=== PATIENT | female | born 1980 | race American Indian/Alaskan Native ===

== ENCOUNTER 2018-06-10 15:58 | Inpatient (IN) | payer MEDICAID, OTHER ==
[2018-06-10] MEDS ORDERED: Multivitamin (MVI) 10 ML, Thiamine 100 MG, Folic Acid 1 MG in Sodium Chloride 0.9% 1,00... IV ONE (17:09)
[2018-06-10 17:32] LABS: BASO % 0.6 % (0.0-2.0); EOS % 0.1 % (0.0-4.0); HEMOGLOBIN 10.1 g/dL (11.0-16.0); LYMPH # 0.7 K/uL (1.0-4.3); LYMPH % 9.3 % (20.0-40.0); MEAN CORPUSCULAR HEMOGLOBIN 24.2 pg (27.0-31.0); MEAN PLATELET VOLUME 10.1 fL (7.2-11.7); MONO # 0.5 K/uL (0.0-0.8); MONO % 6.1 % (0.0-10.0); NEUT # 6.5 K/uL (1.8-7.0); NEUT % 83.9 % (50.0-75.0); PLATELET COUNT 253 K/uL (130-400); RBC 4.17 Mil/uL (3.80-5.20); RED CELL DISTRIBUTION WIDTH 21.3 % (11.5-14.5)
[2018-06-10 17:33] LABS: MEAN CELL VOLUME 78.2 fL (81.0-99.0); WHITE BLOOD COUNT 7.8 K/uL (4.8-10.8)
[2018-06-10 17:45] LABS: ALB/GLOB RATIO 1.3 (1.0-2.1); ALBUMIN 4.7 g/dL (3.5-5.0); ALT/SGPT 45 U/L (9-52); AST/SGOT 90 U/L (14-36); BLOOD UREA NITROGEN 5 mg/dL (7-17); CALCIUM 8.7 mg/dl (8.6-10.4); GFR NON-AFRICAN AMERICAN > 60; LIPASE 114 U/L (23-300)
--- NOTE | 2018-06-10 17:47 | C.PDOC ---
History Of Present Illness 38 yr old female w/ hx of htn, hld, etoh abuse p/w syncopal epsiode. 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 She notes that she has been dizzy at work, and that the last time she drank was yesterday. She notes drinking 6+ cans of beer a day. She denies biting her tongue or enuresis and denies any hx of etoh withdrawal seizures. No fever, chills or night sweats. Time Seen by Provider: 06/10/18 16:58 Chief Complaint (Nursing): GI Problem Past Medical History Vital Signs: Last Vital Signs Temp 98.2 F 06/10/18 16:15 Pulse 85 06/10/18 16:41 Resp 16 06/10/18 16:41 BP 199/99 H 06/10/18 16:41 Pulse Ox 100 06/10/18 16:41 - Medical History PMH: Cardia Arrhythmia, HTN Denies: Chronic Kidney Disease Family History: States: Unknown Family Hx - Social History Hx Tobacco Use: No Hx Alcohol Use: Yes Hx Substance Use: No - Immunization History Hx Tetanus Toxoid Vaccination: Yes (2014) Hx Influenza Vaccination: Yes Hx Pneumococcal Vaccination: No Review Of Systems Constitutional: Positive for: Chills. Negative for: Fever Eyes: Negative for: Pain, Vision Change, Eyelid Inflammation, Redness ENT: Negative for: Ear Pain, Ear Discharge, Nose Congestion, Mouth Pain Cardiovascular: Negative for: Chest Pain, Palpitations, Edema Respiratory: Negative for: Cough, Shortness of Breath, SOB with Excertion, Pleuritic Pain Gastrointestinal: Negative for: Nausea, Vomiting, Abdominal Pain, Diarrhea, Constipation Genitourinary: Negative for: Dysuria Musculoskeletal: Negative for: Neck Pain, Shoulder Pain, Back Pain, Foot Pain Psych: Positive for: Anxiety Physical Exam - Physical Exam Appears: Well, Non-toxic Skin: Normal Color, Warm Head: Atraumatic, Normacephalic Eye(s): bilateral: Normal Inspection, PERRL, EOMI Ear(s): Bilateral: Normal Nose: Normal Tongue: Normal Appearing Lips: Normal Appearing Teeth: Normal Dentition Throat: Normal, No Erythema, No Exudate Neck: Normal, Normal ROM, Other (no meningeal signs) Chest: Symmetrical, No Deformity Cardiovascular: Rhythm Regular Respiratory: Normal Breath Sounds, No Rales, No Rhonchi Gastrointestinal/Abdominal: Normal Exam, Soft, No Tenderness Back: Normal Inspection, No CVA Tenderness, No Vertebral Tenderness Extremity: Normal ROM, No Tenderness Extremity: Bilateral: Atraumatic, Normal Color And Temperature, Normal ROM, Pelvis-Stable Pulses: Left Dorsalis Pedis: Normal, Right Dorsalis Pedis: Normal Neurological/Psych: Oriented x3, Normal Speech, Normal Cognition Other Neurological Findings: Other (tongue fasisculations, tremors noted on exams to distal fingertips) Extremity: Right: No Drift, Left: No Drift ED Course And Treatment - Laboratory Results Result Diagrams: 06/10/18 17:28 06/10/18 17:28 O2 Sat by Pulse Oximetry: 100 Medical Decision Making Medical Decision Makin yr old F w/ hx of Etoh abuse p/w syncopal episodes, nausea, tremors. Pt notes symptoms began after she d/c etoh last night. No hx of withdrawal or seizures but has never d/c etoh. Likely etoh withdrawal w/ syncopal episode. No signs of trauma or meningeal signs on exam. No dark or bloody stool. CIWA 15 EK, NSR, no stemi 1757 Given home medications for HTN, with improvement, pt denies any GILL. Ct read per my red is neg for ICH improved shakes and nervousness and fascilations w/ ativan here in ED admitted to Dr. Rehman (PMD is jerad) for etoh withdrawal Pt agreeable to plan Disposition - Disposition Disposition Time: 17:56 Condition: GOOD Forms: [employer] (K[place]akh) - Clinical Impression Clinical Impression: Alcohol withdrawal
--- NOTE | 2018-06-10 18:00 | CT ---
Date of service: 06/10/2018 PROCEDURE: CT HEAD WITHOUT CONTRAST. HISTORY: syncope COMPARISON: Noncontrast head CT performed 09/04/15 TECHNIQUE: Axial computed tomography images were obtained through the head/brain without intravenous contrast. Radiation dose: Total exam DLP = 1109.92 mGy-cm. This CT exam was performed using one or more of the following dose reduction techniques: Automated exposure control, adjustment of the mA and/or kV according to patient size, and/or use of iterative reconstruction technique. FINDINGS: HEMORRHAGE: No intracranial hemorrhage. BRAIN: No mass effect or edema. Intracranial atherosclerosis. Mild scattered white matter hypodensities, which are nonspecific, but often seen with chronic microvascular ischemic disease. Please note that MRI with diffusion imaging is more sensitive in the detection of acute ischemic event. VENTRICLES: No hydrocephalus. CALVARIUM: Unremarkable. PARANASAL SINUSES: Unremarkable as visualized. No significant inflammatory changes. MASTOID AIR CELLS: Unremarkable as visualized. No inflammatory changes. OTHER FINDINGS: None. IMPRESSION: Mild scattered white matter hypodensities, which are nonspecific, but often seen with chronic microvascular ischemic disease. Correlate clinically.
[2018-06-10 18:19] LABS: LYMPHOCYTE 4 % (20-40); MONOCYTE 3 % (0-10); NEUTROPHIL 93 % (50-75); PLATELET ESTIMATE NORMAL (NORMAL); TOTAL CELLS COUNTED 100
[2018-06-10 18:20] LABS: ANISOCYTOSIS SLIGHT; MICROCYTOSIS SLIGHT
[2018-06-10 18:21] LABS: POLYCHROMIC SLIGHT
[2018-06-10 18:22] LABS: HYPOCHROMIC MODERATE
--- NOTE | 2018-06-10 18:22 | CT ---
Date of service: 06/10/2018 CT cervical spine without IV contrast Indication: fall Comparison: None available Technique: Axial computed tomography images were obtained of the cervical spine without the use of intravenous contrast. Coronal and sagittal reformatted images were created and reviewed. This CT exam was performed using 1 or more of the following dose reduction techniques: Automated exposure control, adjustment of the MAA and/or kV according to patient size, and/or use of iterative reconstruction technique. Radiation dose: Total exam DLP = 587.89 mGy-cm. Findings: Straightening of the normal cervical lordosis may be related to muscle spasm or positioning. There is no evidence of acute fracture or subluxation. There is preserved alignment, vertebral body height, intervertebral disc spaces. The prevertebral soft tissues and spinolaminar lines appear intact. The lateral masses are preserved. The dens tip is intact. There is proper alignment of the lateral masses of C1 with the C2 vertebral body. Included portions of the thyroid gland appear unremarkable. Included portions of lung apices appear clear. Mucosal thickening of the ethmoid air cells and maxillary sinuses. Impression: Straightening of the normal cervical lordosis may be related to muscle spasm or positioning. No evidence of acute fracture or subluxation. Mucosal thickening of the included portions ethmoid air cells and maxillary sinuses.
--- NOTE | 2018-06-10 18:35 | RAD ---
HISTORY: syncope COMPARISON: Chest x-ray performed 11/18/14 TECHNIQUE: Chest PA and lateral FINDINGS: LUNGS: No focal consolidation. Please note that chest x-ray has limited sensitivity for the detection of pulmonary masses. PLEURA: No significant pleural effusion identified. No definite pneumothorax . CARDIOVASCULAR: Heart size appears within normal limits. No atherosclerotic calcification present. OSSEOUS STRUCTURES: No acute osseous abnormality identified. VISUALIZED UPPER ABDOMEN: Unremarkable. OTHER FINDINGS: None. IMPRESSION: No focal consolidation.
[2018-06-11] MEDS: Multiple Vitamins Tab PO SCH (09:10)
[2018-06-11] MEDS: Enoxaparin 40 mg Syringe SC SCH (09:10)
[2018-06-11 12:13] LABS: BASO % 0.8 % (0.0-2.0); EOS % 0.2 % (0.0-4.0); HEMOGLOBIN 9.9 g/dL (11.0-16.0); LYMPH # 0.8 K/uL (1.0-4.3); LYMPH % 16.4 % (20.0-40.0); MEAN CORPUSCULAR HEMOGLOBIN 24.8 pg (27.0-31.0); MEAN CORPUSCULAR HGB CONC 31.3 g/dL (33.0-37.0); MEAN PLATELET VOLUME 9.6 fL (7.2-11.7); MONO # 0.3 K/uL (0.0-0.8); MONO % 6.7 % (0.0-10.0); NEUT # 3.9 K/uL (1.8-7.0); NEUT % 75.9 % (50.0-75.0); RBC 3.98 Mil/uL (3.80-5.20); RED CELL DISTRIBUTION WIDTH 21.1 % (11.5-14.5); WHITE BLOOD COUNT 5.1 K/uL (4.8-10.8)
[2018-06-11 12:23] LABS: ALB/GLOB RATIO 1.2 (1.0-2.1); ALBUMIN 4.4 g/dL (3.5-5.0); ALT/SGPT 42 U/L (9-52); AST/SGOT 63 U/L (14-36); BLOOD UREA NITROGEN 8 mg/dL (7-17); CALCIUM 8.9 mg/dl (8.6-10.4); GFR NON-AFRICAN AMERICAN > 60
--- NOTE | 2018-06-11 13:45 | CP.PCM.CON ---
<Poornima Laureano - Last Filed: 06/11/18 14:54> History of Present Illness - History of Present Illness History of Present Illness: Cardiology progress note 38 year old female with past medical history of HTN and ETOH abuse is admitted for lightheadedness and syncope. Cardiology consulted for syncope. 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 Pt denied hitting head, tongue-bitting, incontinence, speech or vision changes. Pt admits to one prior episode of lightheadedness a few months ago which she attributes to dehydration. On admission, CT of head and neck were negative. Currently, pt denies having any lightheadedness, CP, palpitaitons, weakness, numbness or tingling. PMHx: stated above Sx: c/S x1 Fam hx: HTN and DM (multiple family members) Social hx: Admits to socially drinking ETOH, denies illicit drugs or tobacco use, lives with family, working Meds: See MAR Allergies: NKDA PMD: None Review of Systems - Constitutional Constitutional: absent: Chills, Fever - EENT Eyes: absent: Blurred Vision, Change in Vision Nose/Mouth/Throat: absent: Nasal Congestion - Cardiovascular Cardiovascular: Lightheadedness. absent: Chest Pain, Dyspnea, Leg Edema, Pa lpitations, Pedal Edema - Respiratory Respiratory: absent: Cough, Dyspnea, Wheezing - Gastrointestinal Gastrointestinal: absent: Abdominal Pain, Constipation, Diarrhea, Nausea, Vomiting - Musculoskeletal Musculoskeletal: absent: Back Pain, Numbness, Tingling - Neurological Neurological: Syncope. absent: Confusion, Dizziness, Frequent Falls, Headaches, Vertigo, Weakness - Psychiatric Psychiatric: absent: Anxiety, Depression Past Patient History - Past Medical History & Family History Past Medical History?: Yes - Past Social History Smoking Status: Never Smoked - CARDIAC Hx Cardiac Disorders: Yes Hx Cardia Arrhythmia: Yes Hx Hypertension: Yes - PULMONARY Hx Respiratory Disorders: No - NEUROLOGICAL Hx Neurological Disorder: No - HEENT Hx HEENT Problems: No - RENAL Hx Chronic Kidney Disease: No - ENDOCRINE/METABOLIC Hx Endocrine Disorders: No - HEMATOLOGICAL/ONCOLOGICAL Hx Blood Disorders: No - INTEGUMENTARY Hx Dermatological Problems: No - MUSCULOSKELETAL/RHEUMATOLOGICAL Hx Musculoskeletal Disorders: No Hx Falls: Yes - GASTROINTESTINAL Hx Gastrointestinal Disorders: No - GENITOURINARY/GYNECOLOGICAL Hx Genitourinary Disorders: No - PSYCHIATRIC Hx Psychophysiologic Disorder: No Hx Substance Use: No - SURGICAL HISTORY Hx Surgeries: Yes Hx Section: Yes (1999) - ANESTHESIA Hx Anesthesia: Yes Hx Anesthesia Reactions: No Hx Malignant Hyperthermia: No Meds Allergies/Adverse Reactions: Allergies Allergy/AdvReac Type Severity Reaction Status Date / Time No Known Allergies Allergy Verified 06/10/18 16:09 - Medications Medications: Current Medications Aspirin (Aspirin Chewable) 81 mg PO DAILY [facility] Last Admin: 06/11/18 09:10 Dose: 81 mg Carvedilol (Coreg) 25 mg PO BID [facility] Last Admin: 06/11/18 09:10 Dose: 25 mg Enoxaparin Sodium (Lovenox) 40 mg SC DAILY [facility] Last Admin: 06/11/18 09:10 Dose: 40 mg Folic Acid (Folic Acid) 1 mg PO DAILY [facility] Last Admin: 06/11/18 09:10 Dose: 1 mg Lisinopril (Zestril) 40 mg PO BID [facility] Last Admin: 06/11/18 09:28 Dose: 40 mg Lorazepam (Ativan) 2 mg IVP Q6H PRN PRN Reason: alcohol withdrawl Multivitamins (Hexavitamin) 1 tab PO DAILY [facility] Last Admin: 06/11/18 09:10 Dose: 1 tab Thiamine HCl (Vitamin B1 Tab) 100 mg PO BID [facility] Last Admin: 06/11/18 09:10 Dose: 100 mg Physical Exam - Constitutional Appears: Non-toxic, No Acute Distress - Head Exam Head Exam: ATRAUMATIC, NORMOCEPHALIC - Eye Exam Eye Exam: EOMI Pupil Exam: PERRL - ENT Exam ENT Exam: Mucous Membranes Moist - Respiratory Exam Respiratory Exam: Clear to Auscultation Bilateral. absent: Rales, Rhonchi, Wheezes - Cardiovascular Exam Cardiovascular Exam: REGULAR RHYTHM, +S1, +S2, Systolic Murmur. absent: Diastolic murmur, Gallop, Rubs - GI/Abdominal Exam GI & Abdominal Exam: Normal Bowel Sounds, Soft. absent: Firm, Guarding, Tenderness - Extremities Exam Extremities exam: Negative for: pedal edema, tenderness - Neurological Exam Neurological exam: Alert, Oriented x3 - Psychiatric Exam Psychiatric exam: Normal Affect, Normal Mood - Skin Skin Exam: Dry, Intact, Normal Color, Warm Results - Vital Signs Recent Vital Signs: Last Vital Signs Temp 98.7 F 06/11/18 08:00 Pulse 93 H 06/11/18 10:00 Resp 18 06/11/18 10:00 BP 145/94 H 06/11/18 10:00 Pulse Ox 99 06/11/18 08:00 - Labs Result Diagrams: 06/11/18 12:05 06/11/18 12:05 Labs: Laboratory Results - last 24 hr 06/10/18 06/10/18 06/10/18 16:13 17:28 17:28 WBC 7.8 D RBC 4.17 Hgb 10.1 L Hct 32.6 L MCV 78.2 L D MCH 24.2 L MCHC 31.0 L RDW 21.3 H Plt Count 253 MPV 10.1 Neut % (Auto) 83.9 H Lymph % (Auto) 9.3 L [place] % (Auto) 6.1 Eos % (Auto) 0.1 Baso % (Auto) 0.6 Neut # (Auto) 6.5 Lymph # (Auto) 0.7 L [place] # (Auto) 0.5 Eos # (Auto) 0.0 Baso # (Auto) 0.0 Neutrophils % (Manual) 93 H Lymphocytes % (Manual) 4 L Monocytes % (Manual) 3 Platelet Estimate Normal Polychromasia Slight Hypochromasia (manual) Moderate Anisocytosis (manual) Slight Microcytosis (manual) Slight Sodium 135 Potassium 3.5 L Chloride 94 L Carbon Dioxide 28 Anion Gap 16 BUN 5 L Creatinine 0.5 L Est GFR ( Amer) > 60 Est GFR (Non-Af Amer) > 60 POC Glucose (mg/dL) 116 H Random Glucose 126 H Calcium 8.7 Phosphorus Magnesium 1.1 L Total Bilirubin 0.6 AST 90 H ALT 45 Alkaline Phosphatase 74 Troponin I Total Protein 8.4 H Albumin 4.7 Globulin 3.7 Albumin/Globulin Ratio 1.3 Lipase 114 Alcohol, Quantitative < 10 06/11/18 06/11/18 06/11/18 06:33 12:05 12:05 WBC 5.1 RBC 3.98 Hgb 9.9 L Hct 31.4 L MCV 79.0 L MCH 24.8 L MCHC 31.3 L RDW 21.1 H Plt Count 236 MPV 9.6 Neut % (Auto) 75.9 H Lymph % (Auto) 16.4 L [place] % (Auto) 6.7 Eos % (Auto) 0.2 Baso % (Auto) 0.8 Neut # (Auto) 3.9 Lymph # (Auto) 0.8 L [place] # (Auto) 0.3 Eos # (Auto) 0.0 Baso # (Auto) 0.0 Neutrophils % (Manual) Lymphocytes % (Manual) Monocytes % (Manual) Platelet Estimate Polychromasia Hypochromasia (manual) Anisocytosis (manual) Microcytosis (manual) Sodium 134 Potassium 3.5 L Chloride 94 L Carbon Dioxide 31 H Anion Gap 12 BUN 8 Creatinine 0.7 Est GFR ( Amer) > 60 Est GFR (Non-Af Amer) > 60 POC Glucose (mg/dL) Random Glucose 151 H Calcium 8.9 Phosphorus 3.2 Magnesium 1.4 L Total Bilirubin 0.7 AST 63 H D ALT 42 Alkaline Phosphatase 58 Troponin I 0.0170 < 0.0120 Total Protein 8.1 Albumin 4.4 Globulin 3.7 Albumin/Globulin Ratio 1.2 Lipase Alcohol, Quantitative Assessment & Plan - Assessment and Plan (Free Text) Assessment: 38 year old female with past medical history of HTN and ETOH abuse is admitted for syncope. CT of head and neck were negative on admission. Troponins x 2 negative and EKG was NSR. Syncope - Will check echo and carotid US - Will check orthostatics HTN - Continue home meds: lisinopril 40 mg po bid and coreg 25 mg po bid ETOH - Per primary care team Case discussed with attending, Dr. Duncan - Date & Time Date: 06/11/18 Time: 15:02 <Nolan Duncan - Last Filed: 06/12/18 07:35> Meds - Medications Medications: Current Medications Aspirin (Aspirin Chewable) 81 mg PO DAILY [facility] Last Admin: 06/11/18 09:10 Dose: 81 mg Carvedilol (Coreg) 25 mg PO BID [facility] Last Admin: 06/11/18 17:28 Dose: 25 mg Enoxaparin Sodium (Lovenox) 40 mg SC DAILY [facility] Last Admin: 06/11/18 09:10 Dose: 40 mg Folic Acid (Folic Acid) 1 mg PO DAILY [facility] Last Admin: 06/11/18 09:10 Dose: 1 mg Lisinopril (Zestril) 40 mg PO BID [facility] Last Admin: 06/11/18 17:28 Dose: 40 mg Lorazepam (Ativan) 2 mg IVP Q6H PRN PRN Reason: alcohol withdrawl Last Admin: 06/12/18 01:32 Dose: 2 mg Multivitamins (Hexavitamin) 1 tab PO DAILY [facility] Last Admin: 06/11/18 09:10 Dose: 1 tab Thiamine HCl (Vitamin B1 Tab) 100 mg PO BID [facility] Last Admin: 06/11/18 17:28 Dose: 100 mg Results - Vital Signs Recent Vital Signs: Last Vital Signs Temp 98.8 F 06/12/18 04:00 Pulse 77 06/12/18 04:00 Resp 15 06/12/18 04:00 BP 153/80 H 06/12/18 00:00 Pulse Ox 99 06/12/18 04:00 - Labs Result Diagrams: 06/11/18 12:05 06/11/18 12:05 Labs: Laboratory Results - last 24 hr 06/11/18 06/11/18 06/12/18 12:05 12:05 01:51 WBC 5.1 RBC 3.98 Hgb 9.9 L Hct 31.4 L MCV 79.0 L MCH 24.8 L MCHC 31.3 L RDW 21.1 H Plt Count 236 MPV 9.6 Neut % (Auto) 75.9 H Lymph % (Auto) 16.4 L [place] % (Auto) 6.7 Eos % (Auto) 0.2 Baso % (Auto) 0.8 Neut # (Auto) 3.9 Lymph # (Auto) 0.8 L [place] # (Auto) 0.3 Eos # (Auto) 0.0 Baso # (Auto) 0.0 Sodium 134 Potassium 3.5 L Chloride 94 L Carbon Dioxide 31 H Anion Gap 12 BUN 8 Creatinine 0.7 Est GFR ( Amer) > 60 Est GFR (Non-Af Amer) > 60 Random Glucose 151 H Calcium 8.9 Phosphorus 3.2 Magnesium 1.4 L Total Bilirubin 0.7 AST 63 H D ALT 42 Alkaline Phosphatase 58 Total Creatine Kinase 84 CK-MB (Mass) 0.40 Troponin I < 0.0120 < 0.0120 Total Protein 8.1 Albumin 4.4 Globulin 3.7 Albumin/Globulin Ratio 1.2 Assessment & Plan - Assessment and Plan (Free Text) Assessment: Patient seen and evaluated with the medical esthetician. Plan of care discussed and as documented ECHO and EKG do not suggest cardiac etiology for passing out. Will follow
[2018-06-11] MEDS ORDERED: Potassium Chloride 20 mEq ER Tab PO ONE ×2 (15:30→17:15)
--- NOTE | 2018-06-11 16:05 | CP.PCM.HP ---
History of Present Illness - History of Present Illness History of Present Illness: 38 yr old female w/ hx of htn, hld, etoh abuse p/w syncopal epsiode. 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 She notes that she has been dizzy at work, and that the last time she drank was yesterday. She notes drinking 6+ cans of beer a day. She denies biting her tongue or enuresis and denies any hx of etoh withdrawal seizures. No fever, chills or night sweats. Present on Admission - Present on Admission Any Indicators Present on Admission: No History of DVT/PE: No History of Uncontrolled Diabetes: No Urinary Catheter: No Decubitus Ulcer Present: No Review of Systems - Review of Systems All systems: reviewed and no additional remarkable complaints except (as mentioned in HPI) Past Patient History - Past Medical History & Family History Past Medical History?: Yes - Past Social History Smoking Status: Never Smoked - CARDIAC Hx Cardiac Disorders: Yes Hx Cardia Arrhythmia: Yes Hx Hypertension: Yes - PULMONARY Hx Respiratory Disorders: No - NEUROLOGICAL Hx Neurological Disorder: No - HEENT Hx HEENT Problems: No - RENAL Hx Chronic Kidney Disease: No - ENDOCRINE/METABOLIC Hx Endocrine Disorders: No - HEMATOLOGICAL/ONCOLOGICAL Hx Blood Disorders: No - INTEGUMENTARY Hx Dermatological Problems: No - MUSCULOSKELETAL/RHEUMATOLOGICAL Hx Musculoskeletal Disorders: No Hx Falls: Yes - GASTROINTESTINAL Hx Gastrointestinal Disorders: No - GENITOURINARY/GYNECOLOGICAL Hx Genitourinary Disorders: No - PSYCHIATRIC Hx Psychophysiologic Disorder: No Hx Substance Use: No - SURGICAL HISTORY Hx Surgeries: Yes Hx Section: Yes (1999) - ANESTHESIA Hx Anesthesia: Yes Hx Anesthesia Reactions: No Hx Malignant Hyperthermia: No Meds Allergies/Adverse Reactions: Allergies Allergy/AdvReac Type Severity Reaction Status Date / Time No Known Allergies Allergy Verified 06/10/18 16:09 Physical Exam - Head Exam Head Exam: NORMAL INSPECTION - Eye Exam Eye Exam: Normal appearance - ENT Exam ENT Exam: Mucous Membranes Moist - Respiratory Exam Respiratory Exam: Clear to Auscultation Bilateral - Cardiovascular Exam Cardiovascular Exam: REGULAR RHYTHM, +S1, +S2 - GI/Abdominal Exam GI & Abdominal Exam: Normal Bowel Sounds, Soft - Extremities Exam Extremities exam: Positive for: normal inspection Results - Vital Signs Recent Vital Signs: Last Vital Signs Temp 98.7 F 06/11/18 08:00 Pulse 93 H 06/11/18 10:00 Resp 18 06/11/18 10:00 BP 145/94 H 06/11/18 10:00 Pulse Ox 99 06/11/18 08:00 - Labs Result Diagrams: 06/11/18 12:05 06/11/18 12:05 Labs: Laboratory Results - last 24 hr 06/10/18 06/10/18 06/10/18 16:13 17:28 17:28 WBC 7.8 D RBC 4.17 Hgb 10.1 L Hct 32.6 L MCV 78.2 L D MCH 24.2 L MCHC 31.0 L RDW 21.3 H Plt Count 253 MPV 10.1 Neut % (Auto) 83.9 H Lymph % (Auto) 9.3 L [place] % (Auto) 6.1 Eos % (Auto) 0.1 Baso % (Auto) 0.6 Neut # (Auto) 6.5 Lymph # (Auto) 0.7 L [place] # (Auto) 0.5 Eos # (Auto) 0.0 Baso # (Auto) 0.0 Neutrophils % (Manual) 93 H Lymphocytes % (Manual) 4 L Monocytes % (Manual) 3 Platelet Estimate Normal Polychromasia Slight Hypochromasia (manual) Moderate Anisocytosis (manual) Slight Microcytosis (manual) Slight Sodium 135 Potassium 3.5 L Chloride 94 L Carbon Dioxide 28 Anion Gap 16 BUN 5 L Creatinine 0.5 L Est GFR ( Amer) > 60 Est GFR (Non-Af Amer) > 60 POC Glucose (mg/dL) 116 H Random Glucose 126 H Calcium 8.7 Phosphorus Magnesium 1.1 L Total Bilirubin 0.6 AST 90 H ALT 45 Alkaline Phosphatase 74 Troponin I Total Protein 8.4 H Albumin 4.7 Globulin 3.7 Albumin/Globulin Ratio 1.3 Lipase 114 Alcohol, Quantitative < 10 06/11/18 06/11/18 06/11/18 06:33 12:05 12:05 WBC 5.1 RBC 3.98 Hgb 9.9 L Hct 31.4 L MCV 79.0 L MCH 24.8 L MCHC 31.3 L RDW 21.1 H Plt Count 236 MPV 9.6 Neut % (Auto) 75.9 H Lymph % (Auto) 16.4 L [place] % (Auto) 6.7 Eos % (Auto) 0.2 Baso % (Auto) 0.8 Neut # (Auto) 3.9 Lymph # (Auto) 0.8 L [place] # (Auto) 0.3 Eos # (Auto) 0.0 Baso # (Auto) 0.0 Neutrophils % (Manual) Lymphocytes % (Manual) Monocytes % (Manual) Platelet Estimate Polychromasia Hypochromasia (manual) Anisocytosis (manual) Microcytosis (manual) Sodium 134 Potassium 3.5 L Chloride 94 L Carbon Dioxide 31 H Anion Gap 12 BUN 8 Creatinine 0.7 Est GFR ( Amer) > 60 Est GFR (Non-Af Amer) > 60 POC Glucose (mg/dL) Random Glucose 151 H Calcium 8.9 Phosphorus 3.2 Magnesium 1.4 L Total Bilirubin 0.7 AST 63 H D ALT 42 Alkaline Phosphatase 58 Troponin I 0.0170 < 0.0120 Total Protein 8.1 Albumin 4.4 Globulin 3.7 Albumin/Globulin Ratio 1.2 Lipase Alcohol, Quantitative Assessment & Plan (1) Alcohol withdrawal Status: Acute (2) Hypertension Status: Acute (3) Near syncope Status: Acute - Assessment and Plan (Free Text) Plan: Ativan PRN Cardiology evalv 2 D echo Coreg Trend troponins Thiamine Folate DVT/GI prophalaxis
--- NOTE | 2018-06-12 01:29 | CP.PCM.PN ---
Subjective - Date & Time of Evaluation Date of Evaluation: 06/12/18 Time of Evaluation: : - Subjective Subjective: PGY-1 Overnight Progress Note Nurse paged for patient complaining of chest pain. She complains of burning pain in the center of chest. Patient does appear anxious and upper extremities tremulous. Patient agreed to her prn ativan. Repeat sets of troponins yesterday 06/11 were negative. Patient is sinus rhythm without noticeable ST changes on tele monitor. Denies history of DVT/PE and denies smoking and OCP use, denies dyspnea and shortness of breath. On exam, patient having mild upper extremity tremors and appears mildly anxi ous/agitated. Heart rate is normal range and regular rhythm. Repeat EKG showed no ST changes. Repeating ROMIs as well. PE unlikely. Suspect most likely due to anxiety/withdrawl. Objective - Vital Signs/Intake and Output Vital Signs (last 24 hours): Temp Pulse Resp BP Pulse Ox 98.4 F 74 14 153/80 H 99 06/12/18 00:00 06/12/18 00:00 06/12/18 00:00 06/12/18 00:00 06/12/18 00:00 Intake and Output: 06/11/18 06/12/18 18:59 06:59 Intake Total 850 Balance 850 - Medications Medications: Current Medications Aspirin (Aspirin Chewable) 81 mg PO DAILY [facility] Last Admin: 06/11/18 09:10 Dose: 81 mg Carvedilol (Coreg) 25 mg PO BID [facility] Last Admin: 06/11/18 17:28 Dose: 25 mg Enoxaparin Sodium (Lovenox) 40 mg SC DAILY [facility] Last Admin: 06/11/18 09:10 Dose: 40 mg Folic Acid (Folic Acid) 1 mg PO DAILY [facility] Last Admin: 06/11/18 09:10 Dose: 1 mg Lisinopril (Zestril) 40 mg PO BID [facility] Last Admin: 06/11/18 17:28 Dose: 40 mg Lorazepam (Ativan) 2 mg IVP Q6H PRN PRN Reason: alcohol withdrawl Multivitamins (Hexavitamin) 1 tab PO DAILY [facility] Last Admin: 06/11/18 09:10 Dose: 1 tab Thiamine HCl (Vitamin B1 Tab) 100 mg PO BID [facility] Last Admin: 06/11/18 17:28 Dose: 100 mg - Labs Labs: 06/11/18 12:05 06/11/18 12:05
[2018-06-12] MEDS: Enoxaparin 40 mg Syringe SC SCH (09:28)
[2018-06-12] MEDS: Multiple Vitamins Tab PO SCH (09:28)
[2018-06-12] MEDS: Sodium Chloride 0.45% 1,000 ML IV SCH (16:02)
--- NOTE | 2018-06-12 17:43 | CP.PCM.PN ---
Subjective - Date & Time of Evaluation Date of Evaluation: 06/12/18 Time of Evaluation: 17:43 - Subjective Subjective: Pt is seen and examined No events overnight Objective - Vital Signs/Intake and Output Vital Signs (last 24 hours): Temp Pulse Resp BP Pulse Ox 98.6 F 83 19 150/84 97 06/12/18 12:00 06/12/18 12:00 06/12/18 12:00 06/12/18 17:36 06/12/18 12:00 Intake and Output: 06/12/18 06/12/18 06:59 18:59 Intake Total 100 Balance 100 - Medications Medications: Current Medications Aspirin (Aspirin Chewable) 81 mg PO DAILY [facility] Last Admin: 06/12/18 09:28 Dose: 81 mg Carvedilol (Coreg) 25 mg PO BID [facility] Last Admin: 06/12/18 17:36 Dose: 25 mg Enoxaparin Sodium (Lovenox) 40 mg SC DAILY [facility] Last Admin: 06/12/18 09:28 Dose: 40 mg Folic Acid (Folic Acid) 1 mg PO DAILY [facility] Last Admin: 06/12/18 09:28 Dose: 1 mg Haloperidol Lactate (Haldol) 0.5 mg IVP Q2H PRN PRN Reason: Agitation Sodium Chloride (Sodium Chloride 0.45%) 1,000 mls @ 80 mls/hr IV .[id number] [facility] Last Admin: 06/12/18 16:02 Dose: 80 mls/hr Lisinopril (Zestril) 40 mg PO BID [facility] Last Admin: 06/12/18 17:36 Dose: 40 mg Lorazepam (Ativan) 2 mg IVP Q6H PRN PRN Reason: Anxiety Last Admin: 06/12/18 17:37 Dose: 2 mg Multivitamins (Hexavitamin) 1 tab PO DAILY [facility] Last Admin: 06/12/18 09:28 Dose: 1 tab Thiamine HCl (Vitamin B1 Tab) 100 mg PO BID [facility] Last Admin: 06/12/18 17:37 Dose: 100 mg - Labs Labs: 06/11/18 12:05 06/11/18 12:05 - Head Exam Head Exam: NORMAL INSPECTION - Eye Exam Eye Exam: Normal appearance - ENT Exam ENT Exam: Mucous Membranes Moist - Respiratory Exam Respiratory Exam: Clear to Ausculation Bilateral - Cardiovascular Exam Cardiovascular Exam: REGULAR RHYTHM, +S1, +S2 - GI/Abdominal Exam GI & Abdominal Exam: Soft, Normal Bowel Sounds - Extremities Exam Extremities Exam: Normal Inspection - Neurological Exam Neurological Exam: Alert, Awake Assessment and Plan (1) Alcohol withdrawal Status: Acute (2) ETOH abuse Status: Acute (3) Hypertension Status: Acute (4) Near syncope Status: Acute - Assessment and Plan (Free Text) Plan: Ativan PRN 2 D echo IVF Thiamine Folate DVT/GI prophalaxis
--- NOTE | 2018-06-12 18:59 | CP.PCM.PN ---
Subjective - Date & Time of Evaluation Date of Evaluation: 06/12/18 Time of Evaluation: 13:05 - Subjective Subjective: Patient seen and evaluated Denies chest pain and dyspnea Review of Systems - Constitutional Constitutional: absent: Chills, Fever - EENT Eyes: absent: Blurred Vision, Change in Vision Nose/Mouth/Throat: absent: Nasal Congestion - Cardiovascular Cardiovascular: Lightheadedness. absent: Chest Pain, Dyspnea, Leg Edema, Palpitations, Pedal Edema - Respiratory Respiratory: absent: Cough, Dyspnea, Wheezing - Gastrointestinal Gastrointestinal: absent: Abdominal Pain, Constipation, Diarrhea, Nausea, Vomiting - Musculoskeletal Musculoskeletal: absent: Back Pain, Numbness, Tingling - Neurological Neurological: Syncope. absent: Confusion, Dizziness, Frequent Falls, Headaches, Vertigo, Weakness - Psychiatric Psychiatric: absent: Anxiety, Depression Physical Exam - Constitutional Appears: Non-toxic, No Acute Distress - Head Exam Head Exam: ATRAUMATIC, NORMOCEPHALIC - Eye Exam Eye Exam: EOMI Pupil Exam: PERRL - ENT Exam ENT Exam: Mucous Membranes Moist - Respiratory Exam Respiratory Exam: Clear to Auscultation Bilateral. absent: Rales, Rhonchi, Wheezes - Cardiovascular Exam Cardiovascular Exam: REGULAR RHYTHM, +S1, +S2, Systolic Murmur. absent: Diastolic murmur, Gallop, Rubs - GI/Abdominal Exam GI & Abdominal Exam: Normal Bowel Sounds, Soft. absent: Firm, Guarding, Tenderness - Extremities Exam Extremities exam: Negative for: pedal edema, tenderness - Neurological Exam Neurological exam: Alert, Oriented x3 - Psychiatric Exam Psychiatric exam: Normal Affect, Normal Mood - Skin Skin Exam: Dry, Intact, Normal Color, Warm Assessment & Plan - Assessment and Plan (Free Text) Assessment: 38 year old female with past medical history of HTN and ETOH abuse is admitted for syncope. CT of head and neck were negative on admission. Troponins x 2 negative and EKG was NSR. Syncope No cardiac etiology for syncope found HTN - Continue home meds: lisinopril 40 mg po bid and coreg 25 mg po bid ETOH - Per primary care team Objective - Vital Signs/Intake and Output Vital Signs (last 24 hours): Temp Pulse Resp BP Pulse Ox 97.3 F L 85 20 150/84 97 06/12/18 16:00 06/12/18 16:00 06/12/18 16:00 06/12/18 17:36 06/12/18 12:00 Intake and Output: 06/12/18 06/12/18 06:59 18:59 Intake Total 100 Balance 100 - Medications Medications: Current Medications Aspirin (Aspirin Chewable) 81 mg PO DAILY [facility] Last Admin: 06/12/18 09:28 Dose: 81 mg Carvedilol (Coreg) 25 mg PO BID [facility] Last Admin: 06/12/18 17:36 Dose: 25 mg Enoxaparin Sodium (Lovenox) 40 mg SC DAILY [facility] Last Admin: 06/12/18 09:28 Dose: 40 mg Folic Acid (Folic Acid) 1 mg PO DAILY [facility] Last Admin: 06/12/18 09:28 Dose: 1 mg Haloperidol Lactate (Haldol) 0.5 mg IVP Q2H PRN PRN Reason: Agitation Sodium Chloride (Sodium Chloride 0.45%) 1,000 mls @ 80 mls/hr IV .[id number] [facility] Last Admin: 06/12/18 16:02 Dose: 80 mls/hr Lisinopril (Zestril) 40 mg PO BID [facility] Last Admin: 06/12/18 17:36 Dose: 40 mg Lorazepam (Ativan) 2 mg IVP Q6H PRN PRN Reason: Anxiety Last Admin: 06/12/18 17:37 Dose: 2 mg Multivitamins (Hexavitamin) 1 tab PO DAILY [facility] Last Admin: 06/12/18 09:28 Dose: 1 tab Thiamine HCl (Vitamin B1 Tab) 100 mg PO BID [facility] Last Admin: 06/12/18 17:37 Dose: 100 mg - Labs Labs: 06/11/18 12:05 06/11/18 12:05
[2018-06-13] MEDS: Sodium Chloride 0.45% 1,000 ML IV SCH (03:55)
[2018-06-13] MEDS: Multiple Vitamins Tab PO SCH (10:30)
[2018-06-13] MEDS: Enoxaparin 40 mg Syringe SC SCH (10:31)
--- NOTE | 2018-06-13 12:22 | CARD ---
APPROVED REPORT Date of service: 06/11/2018 EXAM: Two-dimensional and M-mode echocardiogram with Doppler and color Doppler. Other Information Quality : GoodRhythm : INDICATION Syncope RISK FACTORS Hypertension 2D DIMENSIONS IVSd1.4 (0.7-1.1cm)LVDd4.6 (3.9-5.9cm) PWd1.3 (0.7-1.1cm)LA Pjlzvp19 (18-58mL) LVDs2.8 (2.5-4.0cm)FS (%) 39.9 % LVEF (%)70.6 (>50%)LVEF (Haywood's)52.80 % M-Mode DIMENSIONS Left Atrium (MM)3.94 (2.5-4.0cm)IVSd1.69 (0.7-1.1cm) Aortic Root3.05 (2.2-3.7cm)LVDd2.35 (4.0-5.6cm) Aortic Cusp Exc.1.91 (1.5-2.0cm)PWd1.41 (0.7-1.1cm) FS (%) 29 %LVDs3.03 (2.0-3.8cm) LVEF (%)70 (>50%) Mitral Valve MV E Rbahxeip663.9cm/sMV A Lrfbyylh91.9cm/sE/A ratio1.5 TDI Lateral E' Peak V6.87cm/sMedial E' Peak V6.03cm/sE/Lateral E'14.7 E/Medial E'16.7 LEFT VENTRICLE The left ventricle is normal size. There is mild concentric left ventricular hypertrophy. The left ventricular function is normal. The left ventricular ejection fraction is within the normal range. No regional wall motion abnormalities noted. Indetrminate No left ventricle thrombus noted on this study. There is no ventricular septal defect visualized. There is no left ventricular aneurysm. There is no mass noted in the left ventricle. RIGHT VENTRICLE The right ventricle is normal size. There is normal right ventricular wall thickness. The right ventricular systolic function is normal. ATRIA The left atrium size is normal. The right atrium size is normal. The interatrial septum is intact with no evidence for an atrial septal defect. AORTIC VALVE The aortic valve is normal in structure and function. No aortic regurgitation is present. There is no aortic valvular stenosis. There is no aortic valvular vegetation. MITRAL VALVE The mitral valve is normal in structure and function. There is no evidence of mitral valve prolapse. There is no mitral valve stenosis. There is no mitral valve regurgitation noted. TRICUSPID VALVE The tricuspid valve is normal in structure and function. There is no tricuspid valve regurgitation noted. There is no tricuspid valve prolapse or vegetation. There is no tricuspid valve stenosis. PULMONIC VALVE The pulmonary valve is normal in structure and function. There is no pulmonic valvular regurgitation. There is no pulmonic valvular stenosis. GREAT VESSELS The aortic root is normal in size. The ascending aorta is normal in size. The pulmonary artery is normal. The IVC is normal in size and collapses >50% with inspiration. PERICARDIAL EFFUSION The pericardium appears normal. There is no pleural effusion. <Conclusion> There is mild concentric left ventricular hypertrophy. The left ventricular function is normal. The left ventricular ejection fraction is within the normal range. No regional wall motion abnormalities noted.
--- NOTE | 2018-06-13 12:55 | CP.PCM.PN ---
Subjective - Date & Time of Evaluation Date of Evaluation: 06/13/18 Time of Evaluation: 12:51 - Subjective Subjective: Pt is seen and examined Awake and alert No reported confusion since yesterday Objective - Vital Signs/Intake and Output Vital Signs (last 24 hours): Temp Pulse Resp BP Pulse Ox 98.9 F 82 16 162/101 H 99 06/13/18 12:00 06/13/18 12:00 06/13/18 12:00 06/13/18 12:00 06/13/18 12:00 Intake and Output: 06/13/18 06/13/18 06:59 18:59 Intake Total 1320 Output Total 300 Balance 1020 - Medications Medications: Current Medications Aspirin (Aspirin Chewable) 81 mg PO DAILY [facility] Last Admin: 06/13/18 10:29 Dose: 81 mg Carvedilol (Coreg) 25 mg PO BID [facility] Last Admin: 06/13/18 10:29 Dose: 25 mg Enoxaparin Sodium (Lovenox) 40 mg SC DAILY [facility] Last Admin: 06/13/18 10:31 Dose: 40 mg Folic Acid (Folic Acid) 1 mg PO DAILY [facility] Last Admin: 06/13/18 10:30 Dose: 1 mg Haloperidol Lactate (Haldol) 0.5 mg IVP Q2H PRN PRN Reason: Agitation Sodium Chloride (Sodium Chloride 0.45%) 1,000 mls @ 80 mls/hr IV .[id number] [facility] Last Admin: 06/13/18 03:55 Dose: 80 mls/hr Lisinopril (Zestril) 40 mg PO BID [facility] Last Admin: 06/13/18 10:31 Dose: 40 mg Lorazepam (Ativan) 2 mg IVP Q6H PRN PRN Reason: Anxiety Last Admin: 06/12/18 17:37 Dose: 2 mg Multivitamins (Hexavitamin) 1 tab PO DAILY [facility] Last Admin: 06/13/18 10:30 Dose: 1 tab Thiamine HCl (Vitamin B1 Tab) 100 mg PO BID [facility] Last Admin: 06/13/18 10:31 Dose: 100 mg - Labs Labs: 06/11/18 12:05 06/11/18 12:05 - Head Exam Head Exam: NORMAL INSPECTION - Eye Exam Eye Exam: Normal appearance - ENT Exam ENT Exam: Mucous Membranes Moist - Respiratory Exam Respiratory Exam: Clear to Ausculation Bilateral - Cardiovascular Exam Cardiovascular Exam: REGULAR RHYTHM, +S1, +S2 - GI/Abdominal Exam GI & Abdominal Exam: Soft, Normal Bowel Sounds - Extremities Exam Extremities Exam: Normal Inspection - Neurological Exam Neurological Exam: Alert, Oriented x3 Assessment and Plan (1) Alcohol withdrawal Status: Acute (2) Change in mental status Status: Acute (3) Near syncope Status: Acute - Assessment and Plan (Free Text) Plan: d/c IVF d/c Lorezapem Start Librium Thiamine Folate DVT/GI prophalaxis
--- NOTE | 2018-06-13 13:08 | CARD ---
APPROVED REPORT Date of service: 06/10/2018 EKG Measurement Heart [id number] <Conclusion> Normal sinus rhythm Incomplete right bundle branch block Left anterior fascicular block Minimal voltage criteria for LVH, may be normal variant Abnormal ECG
[2018-06-13 18:54] VITALS: O2SAT 100
--- NOTE | 2018-06-13 19:17 | CP.PCM.PN ---
Subjective - Date & Time of Evaluation Date of Evaluation: 06/13/18 Time of Evaluation: 19:16 - Subjective Subjective: Patient seen and evaluated Denies chest pain and dyspnea Review of Systems - Constitutional Constitutional: absent: Chills, Fever - EENT Eyes: absent: Blurred Vision, Change in Vision Nose/Mouth/Throat: absent: Nasal Congestion - Cardiovascular Cardiovascular: Lightheadedness. absent: Chest Pain, Dyspnea, Leg Edema, Palpitations, Pedal Edema - Respiratory Respiratory: absent: Cough, Dyspnea, Wheezing - Gastrointestinal Gastrointestinal: absent: Abdominal Pain, Constipation, Diarrhea, Nausea, Vomiting - Musculoskeletal Musculoskeletal: absent: Back Pain, Numbness, Tingling - Neurological Neurological: Syncope. absent: Confusion, Dizziness, Frequent Falls, Headaches, Vertigo, Weakness - Psychiatric Psychiatric: absent: Anxiety, Depression Physical Exam - Constitutional Appears: Non-toxic, No Acute Distress - Head Exam Head Exam: ATRAUMATIC, NORMOCEPHALIC - Eye Exam Eye Exam: EOMI Pupil Exam: PERRL - ENT Exam ENT Exam: Mucous Membranes Moist - Respiratory Exam Respiratory Exam: Clear to Auscultation Bilateral. absent: Rales, Rhonchi, Wheezes - Cardiovascular Exam Cardiovascular Exam: REGULAR RHYTHM, +S1, +S2, Systolic Murmur. absent: Diastolic murmur, Gallop, Rubs - GI/Abdominal Exam GI & Abdominal Exam: Normal Bowel Sounds, Soft. absent: Firm, Guarding, Tenderness - Extremities Exam Extremities exam: Negative for: pedal edema, tenderness - Neurological Exam Neurological exam: Alert, Oriented x3 - Psychiatric Exam Psychiatric exam: Normal Affect, Normal Mood - Skin Skin Exam: Dry, Intact, Normal Color, Warm Assessment & Plan - Assessment and Plan (Free Text) Assessment: 38 year old female with past medical history of HTN and ETOH abuse is admitted for syncope. CT of head and neck were negative on admission. Troponins x 2 negative and EKG was NSR. Syncope No cardiac etiology for syncope found HTN - Continue home meds: lisinopril 40 mg po bid and coreg 25 mg po bid ETOH - Per primary care team Objective - Vital Signs/Intake and Output Vital Signs (last 24 hours): Temp Pulse Resp BP Pulse Ox 98.3 F 75 16 150/91 H 100 06/13/18 16:00 06/13/18 16:00 06/13/18 16:00 06/13/18 18:21 06/13/18 16:00 Intake and Output: 06/13/18 06/14/18 18:59 06:59 Intake Total 1740 Balance 1740 - Medications Medications: Current Medications Aspirin (Aspirin Chewable) 81 mg PO DAILY [facility] Last Admin: 06/13/18 10:29 Dose: 81 mg Carvedilol (Coreg) 25 mg PO BID [facility] Last Admin: 06/13/18 18:21 Dose: 25 mg Chlordiazepoxide (Librium) 25 mg PO Q8 [facility] Last Admin: 06/13/18 15:35 Dose: 25 mg Enoxaparin Sodium (Lovenox) 40 mg SC DAILY [facility] Last Admin: 06/13/18 10:31 Dose: 40 mg Folic Acid (Folic Acid) 1 mg PO DAILY [facility] Last Admin: 06/13/18 10:30 Dose: 1 mg Haloperidol Lactate (Haldol) 0.5 mg IVP Q2H PRN PRN Reason: Agitation Lisinopril (Zestril) 40 mg PO BID [facility] Last Admin: 06/13/18 18:24 Dose: 40 mg Lorazepam (Ativan) 2 mg IVP Q6H PRN PRN Reason: Anxiety Last Admin: 06/12/18 17:37 Dose: 2 mg Multivitamins (Hexavitamin) 1 tab PO DAILY [facility] Last Admin: 06/13/18 10:30 Dose: 1 tab Thiamine HCl (Vitamin B1 Tab) 100 mg PO BID [facility] Last Admin: 06/13/18 18:24 Dose: 100 mg - Labs Labs: 06/11/18 12:05 06/11/18 12:05
[2018-06-13] MEDS ORDERED: DiphenhydrAMINE 50 mg/ml Inj IVP STA (23:00)
--- NOTE | 2018-06-14 09:42 | CON ---
DATE: 06/12/2018 NEUROLOGY CONSULTATION REQUESTING PHYSICIAN: Eli Rehman MD REASON FOR CONSULTATION: Syncope. HISTORY OF PRESENT ILLNESS: The patient is a 58-year-old lady with past medical history of hypertension and ethanol abuse. 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 No urine incontinence or tongue biting. No loss of consciousness or confusion. At present, the patient is unable to give any history. History was taken from her boyfriend at bedside and from the chart. Initially, the history was taken by the emergency room notes, and the patient stated that she had no urinary incontinence. No confusion. Speech was normal. As per the boyfriend, the patient has been having episodes of withdrawal after binge drinking for few days, and she gets the tremors and shaking, and then gradually it subsides, and this is not the first time as per the boyfriend. PAST MEDICAL HISTORY: Hypertension and diabetes. SOCIAL HISTORY: Ethanol abuse and binge drinking. Denied drug abuse. Working as a guard. MEDICATIONS: Aspirin, lorazepam, carvedilol, folic acid, haloperidol, multivitamins, enoxaparin. In addition to thiamine, lisinopril. FAMILY HISTORY: Noncontributory. ALLERGIES: NO KNOWN ALLERGIC REACTION TO MEDICATIONS. REVIEW OF SYSTEMS: As per H and P. ER notes reviewed. PHYSICAL EXAMINATION: VITAL SIGNS: Blood pressure 130/85, pulse 83, respirations 19, and temperature 98.6. MENTAL STATUS: The patient is sedated, given Ativan 2 mg, but arousable. The patient did not recognize her boyfriend, but knew the President was [place]. Did not know the time and disoriented to person. Did not know the year and the month, and knew where she lives, the street and the town. CRANIAL NERVES: Pupils, symmetrical and reactive. Positive nystagmus, bilaterally horizontal. The patient is not cooperative with full neurological examination. MOTOR: The patient is moving all her extremities spontaneously in response to noxious stimuli. Able to lift her arms and legs against gravity. No significant tremors at this point, but the patient does get Ativan 2 mg. DIAGNOSTIC DATA: CAT scan of the brain did not reveal acute findings. Labs reviewed. IMPRESSION: Alcohol withdrawal. The patient's syncope is probably secondary to withdrawal rather than seizures. The patient has been on Ativan 2 mg for the withdrawal in addition to thiamine. We will do electroencephalogram. CAT scan did not reveal significant findings. Deep venous thrombosis prophylaxis. Intravenous hydration. The patient was not started on intravenous fluid. I have started the patient on 80 mL of half-normal saline. Thank you for the consultation. Myron Maria MD
[2018-06-14] MEDS: Multiple Vitamins Tab PO SCH (10:12)
[2018-06-14] MEDS: Enoxaparin 40 mg Syringe SC SCH (10:13)
--- NOTE | 2018-06-14 12:31 | CP.PCM.DIS ---
Provider - Provider Date of Admission: 06/10/18 20:10 Attending physician: Eli Rehman MD Consults: 06/10/18 23:52 Physician Consult Routine Comment: Consulting Provider: Nolan Duncan Consulting Physician: Nolan Duncan Reason for Consult: Syncope 06/12/18 07:36 Neurology Consult Routine Comment: Please notify the attending Consulting Provider: Ander Mccurdy Consulting Physician: Ander Mccurdy Reason for Consult: syncope 06/14/18 09:00 Neurology Consult Routine Comment: DT's etoh abuse syncope Consulting Provider: Neela Spicer Consulting Physician: Neela Spicer Reason for Consult: etoh abuse syncope DT's Diagnosis - Discharge Diagnosis (1) Alcohol withdrawal Status: Acute (2) ETOH abuse Status: Acute (3) Hypertension Status: Acute (4) Near syncope Status: Acute Hospital Course - Lab Results Lab Results: Micro Results 06/11/18 09:13 Naris MRSA Culture (Admit) - Final MRSA NOT DETECTED Most Recent Lab Values WBC 5.1 K/uL (4.8-10.8) 06/11/18 12:05 RBC 3.98 Mil/uL (3.80-5.20) 06/11/18 12:05 Hgb 9.9 g/dL (11.0-16.0) L 06/11/18 12:05 Hct 31.4 % (34.0-47.0) L 06/11/18 12:05 MCV 79.0 fL (81.0-99.0) L 06/11/18 12:05 MCH 24.8 pg (27.0-31.0) L 06/11/18 12:05 MCHC 31.3 g/dL (33.0-37.0) L 06/11/18 12:05 RDW 21.1 % (11.5-14.5) H 06/11/18 12:05 Plt Count 236 K/uL (130-400) 06/11/18 12:05 MPV 9.6 fL (7.2-11.7) 06/11/18 12:05 Neut % (Auto) 75.9 % (50.0-75.0) H 06/11/18 12:05 Lymph % (Auto) 16.4 % (20.0-40.0) L 06/11/18 12:05 Burt % (Auto) 6.7 % (0.0-10.0) 06/11/18 12:05 Eos % (Auto) 0.2 % (0.0-4.0) 06/11/18 12:05 Baso % (Auto) 0.8 % (0.0-2.0) 06/11/18 12:05 Neut # (Auto) 3.9 K/uL (1.8-7.0) 06/11/18 12:05 Lymph # (Auto) 0.8 K/uL (1.0-4.3) L 06/11/18 12:05 Burt # (Auto) 0.3 K/uL (0.0-0.8) 06/11/18 12:05 Eos # (Auto) 0.0 K/uL (0.0-0.7) 06/11/18 12:05 Baso # (Auto) 0.0 K/uL (0.0-0.2) 06/11/18 12:05 Neutrophils % (Manual) 93 % (50-75) H 06/10/18 17:28 Lymphocytes % (Manual) 4 % (20-40) L 06/10/18 17:28 Monocytes % (Manual) 3 % (0-10) 06/10/18 17:28 Platelet Estimate Normal (NORMAL) 06/10/18 17:28 Polychromasia Slight 06/10/18 17:28 Hypochromasia (manual) Moderate 06/10/18 17:28 Anisocytosis (manual) Slight 06/10/18 17:28 Microcytosis (manual) Slight 06/10/18 17:28 Sodium 134 mmol/L (132-148) 06/11/18 12:05 Potassium 3.5 mmol/L (3.6-5.2) L 06/11/18 12:05 Chloride 94 mmol/L (98-107) L 06/11/18 12:05 Carbon Dioxide 31 mmol/L (22-30) H 06/11/18 12:05 Anion Gap 12 (10-20) 06/11/18 12:05 BUN 8 mg/dL (7-17) 06/11/18 12:05 Creatinine 0.7 mg/dL (0.7-1.2) 06/11/18 12:05 Est GFR ( Amer) > 60 06/11/18 12:05 Est GFR (Non-Af Amer) > 60 06/11/18 12:05 POC Glucose (mg/dL) 116 mg/dL (65-110) H 06/10/18 16:13 Random Glucose 151 mg/dL (65-105) H 06/11/18 12:05 Calcium 8.9 mg/dl (8.6-10.4) 06/11/18 12:05 Phosphorus 3.2 mg/dL (2.5-4.5) 06/11/18 12:05 Magnesium 1.4 mg/dL (1.6-2.3) L 06/11/18 12:05 Total Bilirubin 0.7 mg/dL (0.2-1.3) 06/11/18 12:05 AST 63 U/L (14-36) H D 06/11/18 12:05 ALT 42 U/L (9-52) 06/11/18 12:05 Alkaline Phosphatase 58 U/L (38-126) 06/11/18 12:05 Total Creatine Kinase 84 U/L (30-135) 06/12/18 01:51 CK-MB (Mass) 0.40 ng/mL (0.0-3.38) 06/12/18 01:51 Troponin I < 0.0120 ng/mL (0.00-0.120) 06/12/18 01:51 Total Protein 8.1 g/dL (6.3-8.3) 06/11/18 12:05 Albumin 4.4 g/dL (3.5-5.0) 06/11/18 12:05 Globulin 3.7 gm/dL (2.2-3.9) 06/11/18 12:05 Albumin/Globulin Ratio 1.2 (1.0-2.1) 06/11/18 12:05 Lipase 114 U/L (23-300) 06/10/18 17:28 Alcohol, Quantitative < 10 mg/dl (0-10) 06/10/18 17:28 Discharge Exam - Head Exam Head Exam: NORMAL INSPECTION Discharge Plan - Follow Up Plan Condition: GOOD Disposition: HOME/ ROUTINE
[2018-06-14 14:16] VITALS: BP 130/72; PULSE 78; RESP 17; TEMP 98
--- NOTE | 2018-06-14 22:14 | CARD ---
APPROVED REPORT Date of service: 06/12/2018 EKG Measurement Heart [id number] <Conclusion> Normal sinus rhythm Left axis deviation Abnormal ECG
--- NOTE | 2018-06-16 10:21 | EEG ---
DATE: 06/14/2018 #: [id number] This is a 16-channel electroencephalogram of awake and drowsy adult. During the study, photic stimulation was performed. Hyperventilation was not performed. The resting electroencephalogram consists of low amplitude past high beta activities noted in bilateral, parietal, and occipital leads. Anteriorly high amplitude delta activity is noted in bilateral cortical leads. Intermittent movement artifact contaminated the background rhythm. Later, these activities somewhat organized to form high alpha activities at the parietal and occipital leads. Some movement artifacts contaminated the background rhythm intermittently. Later, these activities slowed down to form high amplitude 2 to 3 Hz delta activities seen besides . The photic stimulation did not evoke driving response noted at 2 to 20 Hz. IMPRESSION: Normal electroencephalogram of awake and drowsy adult. During the study, neither electroencephalographic paroxysmal activities nor focal slowing noted. Ander Mccurdy MD
== END 2018-06-14 17:25 | disposition home or self-care (01) | DRG 751 ==
LOC: C.ER 15:58 → C.9E 20:10 → C.9I 06-11 06:57
PROVIDERS: ADMIT Internal Medicine Critical Care Medicine; ATTEND Internal Medicine Critical Care Medicine
DX: F10.230 Alcohol dependence with withdrawal, uncomplicated (principal); R55 Syncope and collapse; Y90.1 Blood alcohol level of 20-39 mg/100 ml; I10 Essential (primary) hypertension; E78.5 Hyperlipidemia, unspecified; Z79.899 Other long term (current) drug therapy; Z98.891 History of uterine scar from previous surgery

== ENCOUNTER 2018-09-25 15:48 | Observation (INO) | payer OTHER ==
--- NOTE | 2018-09-25 16:02 | C.PDOC ---
History Of Present Illness 38 year old female with PMHx of diabetes presents for evaluation of palpitations and chest discomfort associated with SOB, diarrhea, and vomiting. The pt reports vomiting and diarrhea for a few days and then developed palpitations and chest discomfort while lying down last night. Today she was standing and developed chest pain, palpitations and almost passed out. She notes needing to sit up from bed due to chest discomfort. Admits to taking lasix for leg swelling. Denies fever, chills, blood in stool/vomit, and any other associated symptoms. Time Seen by Provider: 09/25/18 15:49 History Per: Patient History/Exam Limitations: no limitations Onset/Duration Of Symptoms: Days Current Symptoms Are (Timing): Still Present Recent travel outside of the [place]: No Past Medical History Reviewed: Historical Data, Nursing Documentation, Vital Signs Vital Signs: Last Vital Signs Temp 98.2 F 09/25/18 15:53 Pulse 125 H 09/25/18 15:53 Resp 20 09/25/18 15:53 BP 128/83 09/25/18 15:53 Pulse Ox 100 09/25/18 15:53 - Medical History PMH: Cardia Arrhythmia, HTN Denies: Chronic Kidney Disease Family History: States: Unknown Family Hx - Social History Hx Tobacco Use: No Hx Alcohol Use: Yes Hx Substance Use: No - Immunization History Hx Tetanus Toxoid Vaccination: Yes (2014) Hx Influenza Vaccination: Yes Hx Pneumococcal Vaccination: No Review Of Systems Except As Marked, All Systems Reviewed And Found Negative. Constitutional: Negative for: Fever, Chills Cardiovascular: Positive for: Palpitations (with chest discomfort. ) Respiratory: Positive for: Shortness of Breath Gastrointestinal: Positive for: Vomiting, Diarrhea Genitourinary: Negative for: Hematuria, Other (hematemesis. ) Physical Exam - Physical Exam Appears: Non-toxic, No Acute Distress, Other (obese. ) Skin: Warm, Dry Head: Atraumatic, Normacephalic Eye(s): bilateral: Normal Inspection Oral Mucosa: Moist Neck: Normal ROM, Supple Chest: Symmetrical, No Deformity Cardiovascular: Rhythm Regular, No Murmur Respiratory: Normal Breath Sounds, No Rales, No Rhonchi, No Wheezing Gastrointestinal/Abdominal: Normal Exam, Soft, No Tenderness Extremity: Bilateral: Atraumatic, Normal Color And Temperature, Normal ROM Neurological/Psych: Oriented x3, Normal Speech, Normal Cognition ED Course And Treatment - Laboratory Results Result Diagrams: 09/25/18 16:35 09/25/18 16:35 ECG: Interpreted By Me, Viewed By Me ECG Rhythm: Sinus Rhythm Interpretation Of ECG: boarderline ST changes, QT normal. Rate From EC O2 Sat by Pulse Oximetry: 100 (RA) Pulse Ox Interpretation: Normal - Radiology CXR: Read By Radiologist - Other Rad CXR X-Ray: Viewed By Me, Read By Radiologist Interpretation: FINDINGS: LUNGS: The lungs are well inflated and clear. PLEURA: No pneumothorax or pleural effusion. CARDIOVASCULAR: The heart is normal in size. No aortic atherosclerotic calcifications present. OSSEOUS STRUCTURES: Within normal limits for the patient's age. VISUALIZED UPPER ABDOMEN: Normal. OTHER FINDINGS: None. IMPRESSION: No active pulmonary disease. Progress Note: Dr Rehman was paged/texted at 17:29 Reassessment Condition: Improved Medical Decision Making Medical Decision Making: Initial plan: -EKG -Blood sent. -D Dimer -CXR -Zofran -HCG Urine -O2 via nasal cannula -Urinalysis Progress/Update: Discussed EKG with Dr. Leija, who stated no STEMI. Disposition Discussed With : Eli Rehman Doctor Will See Patient In The: Hospital Counseled Patient/Family Regarding: Studies Performed - Disposition Disposition: HOSPITALIZED Disposition Time: 18:37 Condition: STABLE - Clinical Impression Clinical Impression: Near syncope, Chest pain - Scribe Statement The provider has reviewed the documentation as recorded by the Scribe (Missy Cespedes) Provider Attestation: All medical record entries made by the Scribe were at my direction and personally dictated by me. I have reviewed the chart and agree that the record accurately reflects my personal performance of the history, physical exam, medical decision making, and the department course for this patient. I have also personally directed, reviewed, and agree with the discharge instructions and disposition.
[2018-09-25 16:03] VITALS: BMI 43.4
[2018-09-25 16:38] LABS: BASO % 0.2 % (0.0-2.0); EOS % 0.1 % (0.0-4.0); HEMOGLOBIN 11.1 g/dL (11.0-16.0); LYMPH # 0.8 K/uL (1.0-4.3); MEAN CELL VOLUME 78.1 fL (81.0-99.0); MEAN CORPUSCULAR HEMOGLOBIN 24.6 pg (27.0-31.0); MEAN CORPUSCULAR HGB CONC 31.5 g/dL (33.0-37.0); MEAN PLATELET VOLUME 10.6 fL (7.2-11.7); MONO # 0.5 K/uL (0.0-0.8); MONO % 7.7 % (0.0-10.0); RBC 4.52 Mil/uL (3.80-5.20); RED CELL DISTRIBUTION WIDTH 21.3 % (11.5-14.5); WHITE BLOOD COUNT 6.3 K/uL (4.8-10.8)
[2018-09-25 16:51] LABS: BLOOD UREA NITROGEN 13 mg/dL (7-17); CALCIUM 9.8 mg/dl (8.6-10.4); GFR NON-AFRICAN AMERICAN 50; LIPASE 227 U/L (23-300)
[2018-09-25 17:02] LABS: B-TYPE NATRIURETIC PEPTIDE 358 pg/mL (0-450)
[2018-09-25 17:05] LABS: ALB/GLOB RATIO 1.2 (1.0-2.1); ALBUMIN 4.6 g/dL (3.5-5.0); ALT/SGPT 53 U/L (9-52); AST/SGOT 145 U/L (14-36)
[2018-09-25 17:14] LABS: AMYLASE 241 U/L (30-110)
--- NOTE | 2018-09-25 17:22 | RAD ---
Date of service: 09/25/2018 PROCEDURE: CHEST RADIOGRAPH, 1 VIEW HISTORY: SOB COMPARISON: 06/10/2018. FINDINGS: LUNGS: The lungs are well inflated and clear. PLEURA: No pneumothorax or pleural effusion. CARDIOVASCULAR: The heart is normal in size. No aortic atherosclerotic calcifications present. OSSEOUS STRUCTURES: Within normal limits for the patient's age. VISUALIZED UPPER ABDOMEN: Normal. OTHER FINDINGS: None. IMPRESSION: No active pulmonary disease.
[2018-09-25 17:39] LABS: SQUAMOUS EPITHIAL 16 /hpf (0-5); URINE BACTERIA OCC (<OCC); URINE BILIRUBIN 1+ (NEGATIVE); URINE BLOOD 2+ (NEGATIVE); URINE CLARITY Hazy (Clear); URINE COLOR Amber (YELLOW); URINE GLUCOSE (UA) NORMAL (Normal); URINE HYALINE CAST >20 /lpf (0-2); URINE LEUKOCYTE ESTERASE 3+ Leu/uL (Negative); URINE PROTEIN 2+ mg/dL (NEGATIVE)
[2018-09-25] MEDS: Ciprofloxacin 400mg/200ml D5W 400 MG/200 ML BAG IVPB SCH (20:31)
--- NOTE | 2018-09-25 20:35 | CP.PCM.HP ---
Past Patient History - Infectious Disease Hx of Infectious Diseases: None - Past Medical History & Family History Past Medical History?: Yes - Past Social History Smoking Status: Never Smoked - CARDIAC Hx Cardia Arrhythmia: Yes Hx Hypertension: Yes - PULMONARY Hx Respiratory Disorders: No - NEUROLOGICAL Hx Neurological Disorder: No - HEENT Hx HEENT Problems: No - RENAL Hx Chronic Kidney Disease: No - ENDOCRINE/METABOLIC Hx Diabetes Mellitus Type 2: Yes - HEMATOLOGICAL/ONCOLOGICAL Hx Blood Disorders: No - INTEGUMENTARY Hx Dermatological Problems: No - MUSCULOSKELETAL/RHEUMATOLOGICAL Hx Musculoskeletal Disorders: No Hx Falls: Yes - GASTROINTESTINAL Hx Gastrointestinal Disorders: No - GENITOURINARY/GYNECOLOGICAL Hx Genitourinary Disorders: No - PSYCHIATRIC Hx Substance Use: No - SURGICAL HISTORY Hx Surgeries: Yes Hx Section: Yes (1999) - ANESTHESIA Hx Anesthesia: Yes Hx Anesthesia Reactions: No Hx Malignant Hyperthermia: No Meds Allergies/Adverse Reactions: Allergies Allergy/AdvReac Type Severity Reaction Status Date / Time No Known Allergies Allergy Verified 09/25/18 16:03 Results - Vital Signs Recent Vital Signs: Last Vital Signs Temp 98 F 09/25/18 19:04 Pulse 77 09/25/18 19:04 Resp 20 09/25/18 19:04 BP 144/81 09/25/18 19:04 Pulse Ox 100 09/25/18 19:04 - Labs Result Diagrams: 09/25/18 16:35 09/25/18 16:35 Labs: Laboratory Results - last 24 hr 09/25/18 09/25/18 09/25/18 16:35 16:35 16:37 WBC 6.3 RBC 4.52 Hgb 11.1 Hct 35.3 MCV 78.1 L MCH 24.6 L MCHC 31.5 L RDW 21.3 H Plt Count 199 MPV 10.6 Neut % (Auto) 79.0 H Lymph % (Auto) 13.0 L [place] % (Auto) 7.7 Eos % (Auto) 0.1 Baso % (Auto) 0.2 Neut # (Auto) 5.0 Lymph # (Auto) 0.8 L [place] # (Auto) 0.5 Eos # (Auto) 0.0 Baso # (Auto) 0.0 D-Dimer, Quantitative < 200 Sodium 132 Potassium 3.9 Chloride 93 L Carbon Dioxide 26 Anion Gap 17 BUN 13 Creatinine 1.2 Est GFR ( Amer) > 60 Est GFR (Non-Af Amer) 50 Random Glucose 140 H Calcium 9.8 Total Bilirubin 0.9 AST 145 H D ALT 53 H D Alkaline Phosphatase 68 Troponin I 0.0190 NT-Pro-B Natriuret Pep 358 Total Protein 8.5 H Albumin 4.6 Globulin 3.9 Albumin/Globulin Ratio 1.2 Amylase 241 H Lipase 227 Urine Color Urine Clarity Urine pH Ur Specific [place] Urine Protein Urine Glucose (UA) Urine Ketones Urine Blood Urine Nitrate Urine Bilirubin Urine Urobilinogen Ur Leukocyte Esterase Urine WBC (Auto) Urine RBC (Auto) Ur Squamous Epith Cells Urine Bacteria Hyaline Casts 09/25/18 17:22 WBC RBC Hgb Hct MCV MCH MCHC RDW Plt Count MPV Neut % (Auto) Lymph % (Auto) [place] % (Auto) Eos % (Auto) Baso % (Auto) Neut # (Auto) Lymph # (Auto) [place] # (Auto) Eos # (Auto) Baso # (Auto) D-Dimer, Quantitative Sodium Potassium Chloride Carbon Dioxide Anion Gap BUN Creatinine Est GFR ( Amer) Est GFR (Non-Af Amer) Random Glucose Calcium Total Bilirubin AST ALT Alkaline Phosphatase Troponin I NT-Pro-B Natriuret Pep Total Protein Albumin Globulin Albumin/Globulin Ratio Amylase Lipase Urine Color Cookie Urine Clarity Hazy Urine pH 5.0 Ur Specific [place] 1.023 Urine Protein 2+ H Urine Glucose (UA) Normal Urine Ketones Trace Urine Blood 2+ H Urine Nitrate Negative Urine Bilirubin 1+ H Urine Urobilinogen 2.0 H Ur Leukocyte Esterase 3+ H Urine WBC (Auto) 23 H Urine RBC (Auto) 9 H Ur Squamous Epith Cells 16 H Urine Bacteria Occ H Hyaline Casts >20 H
[2018-09-26 02:20] LABS: CK-MB 0.63 ng/mL (0.0-3.38); TROPONIN I 0.014 ng/mL (0.00-0.120)
[2018-09-26] MEDS: Ciprofloxacin 400mg/200ml D5W 400 MG/200 ML BAG IVPB SCH ×2 (06:53→20:48)
[2018-09-26 09:13] LABS: CK-MB 0.49 ng/mL (0.0-3.38)
[2018-09-26] MEDS: Fluticasone Nasal 50 mcg/Spray NAS SCH (09:15)
[2018-09-26] MEDS: Pantoprazole 40 mg EC Tab PO SCH (09:16)
--- NOTE | 2018-09-26 14:39 | US ---
Date of service: 09/26/2018 HISTORY: chest pain COMPARISON: None. TECHNIQUE: Sonographic evaluation of the right upper quadrant of the abdomen. FINDINGS: LIVER: Measures 15.6 cm in length. There is diffuse increased echogenicity of the liver parenchyma. There is a 2.8 x 1.1 x 3.0 cm hyperechoic area without significant vascularity adjacent to the gallbladder fossa. No intrahepatic bile duct dilatation. GALLBLADDER: There are no gallstones, wall thickening or pericholecystic fluid. The sonographic Deras's sign is negative. COMMON BILE DUCT: Measures 3.7 mm. No stones. No dilatation. PANCREAS: Unremarkable as visualized. No mass. No ductal dilatation. RIGHT KIDNEY: Measures 9.4 cm in length. Normal echogenicity. No calculus, mass, or hydronephrosis. AORTA: No aneurysmal dilatation. IVC: Unremarkable. OTHER FINDINGS: None . IMPRESSION: Fatty liver. 2.8 x 1.1 x 3.0 cm hyperechoic lesion adjacent the gallbladder fossa is not completely characterized on this examination and could represent focal fatty infiltration or hemangioma however correlation with CT scan of the abdomen without and with intravenous contrast with liver protocol is recommended for definitive characterization. No cholelithiasis or biliary dilatation.
--- NOTE | 2018-09-26 23:28 | CP.PCM.CON ---
History of Present Illness - History of Present Illness History of Present Illness: 38 year old female with PMHx of diabetes presents for evaluation of palpitations and chest discomfort associated with SOB, diarrhea, and vomiting. The pt reports vomiting and diarrhea for a few days and then developed palpitations and chest discomfort while lying down last night. Today she was standing and developed chest pain, palpitations and almost passed out. She notes needing to sit up from bed due to chest discomfort. Admits to taking lasix for leg swelling. Denies fever, chills, blood in stool/vomit, and any other associated symptoms. History Per: Patient History/Exam Limitations: no limitations Onset/Duration Of Symptoms: Days Current Symptoms Are (Timing): Still Present Recent travel outside of the [place]: No Past Medical History Reviewed: Historical Data, Nursing Documentation, Vital Signs Vital Signs: Last Vital Signs Temp 98.2 F 09/25/18 15:53 Pulse 125 H 09/25/18 15:53 Resp 20 09/25/18 15:53 BP 128/83 09/25/18 15:53 Pulse Ox 100 09/25/18 15:53 - Medical History PMH: Cardia Arrhythmia, HTN Denies: Chronic Kidney Disease Family History: States: Unknown Family Hx - Social History Hx Tobacco Use: No Hx Alcohol Use: Yes Hx Substance Use: No - Immunization History Hx Tetanus Toxoid Vaccination: Yes (2014) Hx Influenza Vaccination: Yes Hx Pneumococcal Vaccination: No Review Of Systems Except As Marked, All Systems Reviewed And Found Negative. Constitutional: Negative for: Fever, Chills Cardiovascular: Positive for: Palpitations (with chest discomfort. ) Respiratory: Positive for: Shortness of Breath Gastrointestinal: Positive for: Vomiting, Diarrhea Genitourinary: Negative for: Hematuria, Other (hematemesis. ) Physical Exam - Physical Exam Appears: Non-toxic, No Acute Distress, Other (obese. ) Skin: Warm, Dry Head: Atraumatic, Normacephalic Eye(s): bilateral: Normal Inspection Oral Mucosa: Moist Neck: Normal ROM, Supple Chest: Symmetrical, No Deformity Cardiovascular: Rhythm Regular, No Murmur Respiratory: Normal Breath Sounds, No Rales, No Rhonchi, No Wheezing Gastrointestinal/Abdominal: Normal Exam, Soft, No Tenderness Extremity: Bilateral: Atraumatic, Normal Color And Temperature, Normal ROM Neurological/Psych: Oriented x3, Normal Speech, Normal Cognition ED Course And Treatment - Laboratory Results Result Diagrams: ECG: Interpreted By Me, Viewed By Me ECG Rhythm: Sinus Rhythm Interpretation Of ECG: boarderline ST changes, QT normal. Rate From EC O2 Sat by Pulse Oximetry: 100 (RA) Pulse Ox Interpretation: Normal - Radiology CXR: Read By Radiologist - Other Rad CXR X-Ray: Viewed By Me, Read By Radiologist Interpretation: FINDINGS: LUNGS: The lungs are well inflated and clear. PLEURA: No pneumothorax or pleural effusion. CARDIOVASCULAR: The heart is normal in size. No aortic atherosclerotic calcifications present. OSSEOUS STRUCTURES: Within normal limits for the patient's age. VISUALIZED UPPER ABDOMEN: Normal. OTHER FINDINGS: None. IMPRESSION: No active pulmonary disease. Progress Note: Dr Rehman was paged/texted at 17:29 Reassessment Condition: Improved Past Patient History - Infectious Disease Hx of Infectious Diseases: None - Past Medical History & Family History Past Medical History?: Yes - Past Social History Smoking Status: Never Smoked - CARDIAC Hx Cardia Arrhythmia: Yes Hx Hypertension: Yes - PULMONARY Hx Respiratory Disorders: No - NEUROLOGICAL Hx Neurological Disorder: No - HEENT Hx HEENT Problems: No - RENAL Hx Chronic Kidney Disease: No - ENDOCRINE/METABOLIC Hx Diabetes Mellitus Type 2: Yes - HEMATOLOGICAL/ONCOLOGICAL Hx Blood Disorders: No - INTEGUMENTARY Hx Dermatological Problems: No - MUSCULOSKELETAL/RHEUMATOLOGICAL Hx Musculoskeletal Disorders: No Hx Falls: Yes - GASTROINTESTINAL Hx Gastrointestinal Disorders: No - GENITOURINARY/GYNECOLOGICAL Hx Genitourinary Disorders: No - PSYCHIATRIC Hx Substance Use: No - SURGICAL HISTORY Hx Surgeries: Yes Hx Section: Yes (1999) - ANESTHESIA Hx Anesthesia: Yes Hx Anesthesia Reactions: No Hx Malignant Hyperthermia: No Meds Allergies/Adverse Reactions: Allergies Allergy/AdvReac Type Severity Reaction Status Date / Time No Known Allergies Allergy Verified 09/25/18 16:03 - Medications Medications: Current Medications Aspirin (Aspirin Chewable) 81 mg PO DAILY [facility] Last Admin: 09/26/18 09:16 Dose: 81 mg Carvedilol (Coreg) 25 mg PO BID [facility] Last Admin: 09/26/18 18:37 Dose: 25 mg Escitalopram Oxalate (Lexapro) 20 mg PO DAILY [facility] Last Admin: 09/26/18 09:15 Dose: 20 mg Fluticasone Propionate (Flonase) 1 spr ANGELA DAILY [facility] Last Admin: 09/26/18 09:15 Dose: 1 spray Folic Acid (Folic Acid) 1 mg PO DAILY [facility] Last Admin: 09/26/18 09:16 Dose: 1 mg Furosemide (Lasix) 20 mg PO DAILY [facility] Last Admin: 09/26/18 09:16 Dose: 20 mg Ciprofloxacin (Cipro 400mg/200ml Dsw) 400 mg in 200 mls @ 133 mls/hr IVPB Q12H [facility]; Protocol Last Admin: 09/26/18 20:48 Dose: 133 mls/hr Lisinopril (Zestril) 40 mg PO DAILY [facility] Last Admin: 09/26/18 09:16 Dose: 40 mg Metformin HCl (Glucophage) 500 mg PO DAILY [facility] Last Admin: 09/26/18 09:16 Dose: 500 mg Montelukast Sodium (Singulair) 10 mg PO DAILY [facility] Last Admin: 09/26/18 09:16 Dose: 10 mg Pantoprazole Sodium (Protonix Ec Tab) 40 mg PO DAILY [facility] Last Admin: 09/26/18 09:16 Dose: 40 mg Trazodone HCl (Desyrel) 100 mg PO HS [facility] Last Admin: 09/26/18 21:43 Dose: 100 mg Results - Vital Signs Recent Vital Signs: Last Vital Signs Temp 98.9 F 09/26/18 15:00 Pulse 79 09/26/18 15:49 Resp 20 09/26/18 15:00 BP 118/74 09/26/18 18:37 Pulse Ox 100 09/26/18 15:00 - Labs Result Diagrams: 09/25/18 16:35 09/25/18 16:35 Labs: Laboratory Results - last 24 hr 09/26/18 09/26/18 09/26/18 01:42 08:41 16:59 POC Glucose (mg/dL) 122 H Total Creatine Kinase 143 H 125 CK-MB (Mass) 0.63 0.49 Troponin I 0.0140 < 0.0120 09/26/18 21:43 POC Glucose (mg/dL) 115 H Total Creatine Kinase CK-MB (Mass) Troponin I Assessment & Plan - Assessment and Plan (Free Text) Assessment: 38 year old female with past medical history of HTN and ETOH abuse is admitted for near syncope and chest pain. Syncope - Will carotid US - Will check orthostatics Check stress test HTN - Continue home meds: lisinopril 40 mg po bid and coreg 25 mg po bid ETOH - Per primary care team
[2018-09-27] MEDS: Ciprofloxacin 400mg/200ml D5W 400 MG/200 ML BAG IVPB SCH (06:46)
[2018-09-27 07:59] VITALS: BP 120/66; RESP 18; TEMP 98; O2SAT 100
[2018-09-27 08:36] VITALS: PULSE 86
[2018-09-27] MEDS ORDERED: Caffeine Citrated **INJ** 20 MG/ML IV ONE (08:37)
--- NOTE | 2018-09-27 10:03 | CARD ---
APPROVED REPORT Date of service: 09/25/2018 EKG Measurement Heart [id number] HI [id number] <Conclusion> Normal sinus rhythm Left anterior fascicular block Abnormal ECG
[2018-09-27] MEDS: Fluticasone Nasal 50 mcg/Spray NAS SCH (10:25)
[2018-09-27] MEDS: Pantoprazole 40 mg EC Tab PO SCH (10:26)
--- NOTE | 2018-09-27 11:07 | CP.PCM.PN ---
Subjective - Date & Time of Evaluation Date of Evaluation: 09/27/18 Time of Evaluation: 11:07 Objective - Vital Signs/Intake and Output Vital Signs (last 24 hours): Temp Pulse Resp BP Pulse Ox 98.0 F 86 18 120/66 100 09/27/18 07:00 09/27/18 07:04 09/27/18 07:00 09/27/18 07:00 09/27/18 07:00 Intake and Output: 09/27/18 09/27/18 06:59 18:59 Intake Total 440 Balance 440 - Medications Medications: Current Medications Aspirin (Aspirin Chewable) 81 mg PO DAILY [facility] Last Admin: 09/27/18 10:25 Dose: Not Given Carvedilol (Coreg) 25 mg PO BID [facility] Last Admin: 09/27/18 10:25 Dose: Not Given Escitalopram Oxalate (Lexapro) 20 mg PO DAILY [facility] Last Admin: 09/27/18 10:26 Dose: Not Given Fluticasone Propionate (Flonase) 1 spr ANGELA DAILY [facility] Last Admin: 09/27/18 10:25 Dose: Not Given Folic Acid (Folic Acid) 1 mg PO DAILY [facility] Last Admin: 09/27/18 10:25 Dose: Not Given Furosemide (Lasix) 20 mg PO DAILY [facility] Last Admin: 09/27/18 10:25 Dose: Not Given Ciprofloxacin (Cipro 400mg/200ml Dsw) 400 mg in 200 mls @ 133 mls/hr IVPB Q12H [facility]; Protocol Last Admin: 09/27/18 06:46 Dose: 133 mls/hr Lisinopril (Zestril) 40 mg PO DAILY [facility] Last Admin: 09/27/18 10:26 Dose: Not Given Metformin HCl (Glucophage) 500 mg PO DAILY [facility] Last Admin: 09/27/18 10:25 Dose: Not Given Montelukast Sodium (Singulair) 10 mg PO DAILY [facility] Last Admin: 09/27/18 10:26 Dose: Not Given Pantoprazole Sodium (Protonix Ec Tab) 40 mg PO DAILY [facility] Last Admin: 09/27/18 10:26 Dose: Not Given Trazodone HCl (Desyrel) 100 mg PO HS [facility] Last Admin: 09/26/18 21:43 Dose: 100 mg - Labs Labs: 09/25/18 16:35 09/25/18 16:35
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
== END 2018-09-27 13:14 | disposition home or self-care (01) ==
LOC: C.ER 15:48 → C.6T 18:34
PROVIDERS: ADMIT Internal Medicine Critical Care Medicine; ATTEND Internal Medicine Critical Care Medicine
DX: R55 Syncope and collapse (principal); R07.9 Chest pain, unspecified; E11.9 Type 2 diabetes mellitus without complications; I10 Essential (primary) hypertension; R00.2 Palpitations; F10.10 Alcohol abuse, uncomplicated; Y90.0 Blood alcohol level of less than 20 mg/100 ml
CPT/HCPCS: 36415; 71045; 76705; 78452; 80053; 80320; 81001; 81025; 82150; 82948; 83690; 83880; 84484; 85025; 85378; 87086; 93005; 93017; 96374; 99285; A9502; G0378; J0706; J0744; J2405; J2785